=== PATIENT | male | born 1935 | race Caucasian/White ===

== ENCOUNTER 2016-07-22 11:02 | Observation (INO) | payer MEDICARE, OTHER ==
[~2016-07-22] VITALS: Ht 172.7 cm; Wt 68.0 kg
[~2016-07-22 11:02] MED LIST: ASPI-586 PO; ATOR40TA70 PO; CEPH-507 PO; DILT300C49 PO; FURO-124 PO; HYDR-3812 PO; IRBE300T42 PO; MEMA28CA PO; PANT40TA2 PO; PRAS10TA6 PO
[2016-07-22 11:30] VITALS: BP 171/81
--- OUTSIDE RECORDS SUMMARY | 2016-07-22 12:18 | XMS REPORT | Continuity of Care Document ---
Author Author [facility] Organization [facility] Address Unknown Phone Unavailable Care Team Providers Care Harness Repairer Name Role Phone SHAHRAM ALVAREZ MD PCP Insurance Providers Payer Name Policy Number Subscriber Name Relationship [facility] [id number] Mina Sinclair Self / Same As Patient s Medicare [id number] Mina Sinclair Self / Same As Patient Advance Directives Directive Response Recorded Date/Time Advance Directives No 07/20/16 3:36pm Health Care Power of Solid Waste Manager No 07/20/16 3:36pm Organ Donor No 07/20/16 3:36pm Resuscitation Status Full Code 07/20/16 3:36pm Problems No problem information available. Medications Current Home Medications Medication Dose Units Route Directions Days/Qty Instructions Start Date Prasugrel Hcl 10 Mg 10 Mg Oral Daily 07/20/16 Irbesartan 300 Mg 300 Mg Oral Daily 07/20/16 Aspirin 81 Mg 81 Mg Oral Daily 07/20/16 Memantine Hcl 28 Mg 28 Mg Oral Daily 07/20/16 Diltiazem Hcl 300 Mg 300 Mg Oral Bedtime 07/20/16 Atorvastatin Calcium 40 Mg 40 Mg Oral Bedtime 07/20/16 Furosemide 40 Mg 40 Mg Oral Bedtime 07/20/16 Pantoprazole Sodium 40 Mg 40 Mg Oral Bedtime 07/20/16 Hydrocodone/Acetaminophen 1 Each 1-2 Tab Oral Give Every 4 Hrs On Schedule as needed for Moderate Pain 40 07/21/16 Cephalexin 500 Mg 500 Mg Oral Three Times A Day 30 07/21/16 Social History Social History Problem Response Recorded Date/Time Alcohol Use Denies Use 07/20/2016 3:36pm Recreational Drug Use No 07/20/2016 3:36pm Recent Foreign Travel No 07/20/2016 3:28pm Recent Infectious Disease Exposure No 07/20/2016 3:28pm Smoking Status Never a Smoker 07/20/2016 3:36pm Recent Hopitalizations No 07/20/2016 3:36pm Query Response Start Date Stop Date Smoking Status Never a Smoker Hospital Discharge Instructions No hospital discharge instructions. Plan of Care Discharge Date 07/21/16 3:00pm Instructions/Education Provided Nosebleeds (DC) Prescriptions See Medication Section Functional Status Query Response Date Recorded Patient Orientation Person Place Time Situation July 21, 2016 5:54pm Comprehension Ability Understands Concepts July 21, 2016 8:00am Allergies, Adverse Reactions, Alerts No known allergies. Immunizations Name Given Type FLU TRIvalent 5 years - Adult 07/21/16 Administered Vital Signs Acute Vital Signs Vital Response Date/Time Temperature (Fahrenheit) 98.0 degrees F (97.6 - 99.5) 07/21/2016 3:00pm Temperature (Calculated Celsius) 36.82857 degrees C (36.4 - 37.5) 07/21/2016 12:00pm Temperature Source Tympanic 07/21/2016 3:00pm Pulse Rate (adult) 78 bpm (60 - 90) 07/21/2016 3:00pm Respiratory Rate 20 bpm (12 - 24) 07/21/2016 3:00pm O2 Sat by Pulse Oximetry 95 % (88 - 100) 07/21/2016 3:00pm Blood Pressure 138/88 mm Hg 07/21/2016 3:00pm Blood Pressure Mean 84 mm Hg 07/21/2016 12:00pm Pain Numeric Pain Scale 8 07/21/2016 12:03pm Pain Intensity 3 07/21/2016 3:26am Height (Feet) 5 feet 07/20/2016 3:28pm Height (Inches) 8.50 inches 07/20/2016 3:28pm Height (Calculated Centimeters) 173.980217 cm 07/20/2016 3:28pm Weight (Pounds) 152 pounds 07/20/2016 3:28pm Weight (Ounces) 0.0 oz 07/20/2016 3:28pm Weight (Calculated Grams) 93269.04 gm 07/20/2016 3:28pm Weight (Calculated Kilograms) 68.834803 kilograms 07/20/2016 3:28pm Calculated BMI 22.8 07/20/2016 3:28pm Results Laboratory Results Test Name Result Units Flags Reference Collection Date/Time Result Date/ Time Comments White Blood Count 8.7 10^3/uL 4.3-11.0 07/20/2016 3:05pm 07/20/2016 3: 20pm Red Blood Count 3.97 10^6/uL L 4.35-5.85 07/20/2016 3:05pm 07/20/2016 3: 20pm Hemoglobin 12.2 G/DL L 13.3-17.7 07/20/2016 3:05pm 07/20/2016 3:20pm Hematocrit 37 % L 40-54 07/20/2016 3:05pm 07/20/2016 3:20pm Mean Corpuscular Volume 92 FL 80-99 07/20/2016 3:05pm 07/20/2016 3: 20pm Mean Corpuscular Hemoglobin 31 PG 25-34 07/20/2016 3:05pm 07/20/2016 3: 20pm Mean Corpuscular Hemoglobin Concent 33 G/DL 32-36 07/20/2016 3:05pm 3:20pm Red Cell Distribution Width 12.5 % 10.0-14.5 07/20/2016 3:05pm 2015 3:20pm Platelet Count 232 10^3/uL 130-400 07/20/2016 3:05pm 07/20/2016 3:20pm Mean Platelet Volume 10.2 FL 7.4-10.4 07/20/2016 3:05pm 07/20/2016 3: 20pm Neutrophils (%) (Auto) 69 % 42-75 07/20/2016 3:05pm 07/20/2016 3:20pm Lymphocytes (%) (Auto) 19 % 12-44 07/20/2016 3:05pm 07/20/2016 3:20pm Monocytes (%) (Auto) 9 % 0-12 07/20/2016 3:05pm 07/20/2016 3:20pm Eosinophils (%) (Auto) 3 % 0-10 07/20/2016 3:05pm 07/20/2016 3:20pm Basophils (%) (Auto) 0 % 0-10 07/20/2016 3:05pm 07/20/2016 3:20pm Neutrophils # (Auto) 6.0 X 10^3 1.8-7.8 07/20/2016 3:05pm 07/20/2016 3: 20pm Lymphocytes # (Auto) 1.7 X 10^3 1.0-4.0 07/20/2016 3:05pm 07/20/2016 3: 20pm Monocytes # (Auto) 0.8 X 10^3 0.0-1.0 07/20/2016 3:05pm 07/20/2016 3: 20pm Eosinophils # (Auto) 0.2 10^3/uL 0.0-0.3 07/20/2016 3:05pm 07/20/2016 3 :20pm Basophils # (Auto) 0.0 10^3/uL 0.0-0.1 07/20/2016 3:05pm 07/20/2016 3: 20pm Sodium Level 140 MMOL/L 135-145 07/20/2016 3:05pm 07/20/2016 3:41pm Potassium Level 3.8 MMOL/L 3.6-5.0 07/20/2016 3:05pm 07/20/2016 3:41pm Chloride Level 111 MMOL/L H 98-107 07/20/2016 3:05pm 07/20/2016 3:41pm Carbon Dioxide Level 20 MMOL/L L 21-32 07/20/2016 3:05pm 07/20/2016 3: 41pm Anion Gap 9 MMOL/L 5-14 07/20/2016 3:05pm 07/20/2016 3:41pm Blood Urea Nitrogen 36 MG/DL H 7-18 07/20/2016 3:05pm 07/20/2016 3:41pm Creatinine 0.97 MG/DL 0.60-1.30 07/20/2016 3:05pm 07/20/2016 3:41pm BUN/Creatinine Ratio 37 07/20/2016 3:05pm 07/20/2016 3:41pm Estimat Glomerular Filtration Rate > 60 07/20/2016 3:05pm 2015 3:41pm GFR INTERPRETIVE DATA UNITS FOR ESTIMATED GFR (eGFR): mL/min/1.73 M2 REFERENCE RANGE FOR ESTIMATED GFR (eGFR) eGFR NORMAL eGFR >60 MODERATELY DECREASED eGFR 30-59 SEVERLY DECREASED eGFR 15-29 KIDNEY FAILURE <15 (OR DIALYSIS) Glucose Level 148 MG/DL H 70-105 07/20/2016 3:05pm 07/20/2016 3:41pm Calcium Level 9.0 MG/DL 8.5-10.1 07/20/2016 3:05pm 07/20/2016 3:41pm Total Bilirubin 0.7 MG/DL 0.1-1.0 07/20/2016 3:05pm 07/20/2016 3:41pm Alkaline Phosphatase 70 U/L 40-136 07/20/2016 3:05pm 07/20/2016 3:41pm Aspartate Amino Transf (AST/SGOT) 20 U/L 5-34 07/20/2016 3:05pm 2015 3:41pm Alanine Aminotransferase (ALT/SGPT) 20 U/L 0-55 07/20/2016 3:05pm 07/20 3:41pm Total Protein 6.0 G/DL L 6.4-8.2 07/20/2016 3:05pm 07/20/2016 3:41pm Albumin 4.1 G/DL 3.2-4.5 07/20/2016 3:05pm 07/20/2016 3:41pm Procedures Procedure Status Date Provider(s) Control of epistaxis Completed 07/20/16 EKTA FAN MD Tracing only of electrocardiogram Completed 07/20/16 EKTA FAN MD Encounters Encounter Location Arrival/Admit Date Discharge/Depart Date Attending Provider Departed [facility] 07/20/16 2:31pm 3:00pm EKTA FAN MD
[2016-07-22] MEDS ORDERED: LACTATED RINGERS 1,000 ML IV ONE (12:26)
[2016-07-22] MEDS ORDERED: SEVOFLURANE (ULTANE) 15 ML INHAL SOLN ONE ×2 (12:26→13:38)
[2016-07-22] MEDS ORDERED: LIDOCAINE PF 2% 10 ML (XYLOCAINE) AMP ONE (12:26)
[2016-07-22] MEDS ORDERED: SUCCINYLCHOLINE INJ 100 MG/5 ML SYR ONE (12:26)
[2016-07-22] MEDS ORDERED: proPOfol 200 MG/20 ML (DIPRIVAN) VIAL IV ONE (12:26)
[2016-07-22] MEDS ORDERED: fentaNYL INJECTION 100 MCG/2 ML AMP ONE (12:26)
[2016-07-22] MEDS ORDERED: ROCURONIUM 50 MG/5 ML (ZEMURON) VIAL IV ONE (12:26)
[2016-07-22] MEDS ORDERED: ONDANSETRON 4 MG/2 ML (SDV) Z0FRAN ONE (12:26)
--- NOTE | 2016-07-22 12:41 | Progress Note-Pre Operative ---
Pre-Operative Progress Note H&P Reviewed The H&P was reviewed, patient examined and no changes noted. Date H&P Reviewed: Jul 22, 2016 Time H&P Reviewed: 12:20 Pre-Operative Diagnosis: Recurrent Right Posterior Epistaxis EKTA FAN MD Jul 22, 2016 12:41 pm
[2016-07-22 12:43] LABS: BASOPHILS % (AUTO) 0 % (0-10); EOSINOPHILS # (AUTO) 0.1 10^3/uL (0.0-0.3); EOSINOPHILS % (AUTO) 1 % (0-10); LYMPHOCYTES # (AUTO) 0.7 X 10^3 (1.0-4.0); LYMPHOCYTES % (AUTO) 6 % (12-44); MEAN CORPUSCULAR HEMOGLOBIN 31 PG (25-34); MEAN CORPUSCULAR HGB CONC 32 G/DL (32-36); MEAN CORPUSCULAR VOLUME 95 FL (80-99); MONOCYTES # (AUTO) 0.6 X 10^3 (0.0-1.0); MONOCYTES % (AUTO) 6 % (0-12); NEUTROPHILS # (AUTO) 9.2 X 10^3 (1.8-7.8); NEUTROPHILS % (AUTO) 87 % (42-75); PLATELET COUNT 221 10^3/uL (130-400); RED BLOOD COUNT 3.56 10^6/uL (4.35-5.85); RED CELL DISTRIBUTION WIDTH 12.7 % (10.0-14.5); WHITE BLOOD COUNT 10.6 10^3/uL (4.3-11.0)
[2016-07-22] MEDS ORDERED: LIDOCAINE/EPI 1%-1:100,000 (XYLOCAINE) 20ML INJ ONE (12:57)
[2016-07-22] MEDS ORDERED: MUPIROCIN 2% OINT 22 GM (BACTROBAN) TUBE TOP ONE (12:57)
[2016-07-22] MEDS ORDERED: PHENYLEPHRINE 100 MCG/ML 10 ML (ANESTHESIA) SYR ONE (12:58)
[2016-07-22 12:59] LABS: ANION GAP 10 MMOL/L (5-14); BLOOD UREA NITROGEN 19 MG/DL (7-18); BUN/CREATININE RATIO 18; CALCIUM 9.4 MG/DL (8.5-10.1); CARBON DIOXIDE 24 MMOL/L (21-32); CHLORIDE 106 MMOL/L (98-107); CREATININE SERUM 1.06 MG/DL (0.60-1.30); GFR ESTIMATED > 60; GLUCOSE 199 MG/DL (70-105); POTASSIUM 4.1 MMOL/L (3.6-5.0); SODIUM 140 MMOL/L (135-145)
--- NOTE | 2016-07-22 13:23 | Progress Note-Post Operative ---
Post-Operative Progess Note Pre-Operative Diagnosis Recurrent Right Posterior Epistaxis Post-Operative Diagnosis same Post-Op Procedure Note Date of Procedure: Jul 22, 2016 Name of Procedure: Endoscopoic Repair of Right Posterior Epistaxis Anesthesia Type get Estimated blood loss (mL): less than 50cc at time of surgery Packing: DNP-right side of nose EKTA FAN MD Jul 22, 2016 1:23 pm
[2016-07-22] MEDS ORDERED: HYDROcodone/APAP 5 MG/325 MG (LORTAB) TAB PO PRN ×2 (13:30→15:38)
[2016-07-22] MEDS ORDERED: PHENYLEPHRINE 0.5% NASAL SPR (NEO-SYNEPHRINE) REG PRN (13:30)
[2016-07-22 13:40] LABS: BAND NEUTROPHILS 2 %; NEUTROPHILS % (MANUAL) 85 %
[2016-07-22 13:41] LABS: LYMPHOCYTES % (MANUAL) 5 %
[2016-07-22] MEDS ORDERED: CEPH-507 PO (13:49)
[2016-07-22] MEDS ORDERED: SODI30SP2 (13:49)
[2016-07-22] MEDS ORDERED: PHEN15SP NS (13:49)
[2016-07-22 14:45] VITALS: BP 134/68
[2016-07-22] MEDS: D5 1/2 NS W/KCL 20 MEQ/L 1,000 ML IV SCH (14:59)
[2016-07-22] MEDS ORDERED: PHENYLEPHRINE 0.25% NASAL SPR (NEO-SYNEPHRINE) 15 ML NS PRN (15:00)
[2016-07-22] MEDS ORDERED: PATIENT MAY USE OWN MEDS, ALL MC SCH (15:00)
[2016-07-22] MEDS ORDERED: FUROSEMIDE 40 MG (LASIX) TAB PO PRN (15:00)
[2016-07-22 15:50] VITALS: BP 150/74
[2016-07-22] MEDS ORDERED: LACTATED RINGERS 1,000 ML IV SCH (17:15)
[2016-07-22] MEDS: ACYCLOVIR 200 MG CAP (ZOVIRAX) PO SCH ×2 (18:11→20:41)
[2016-07-22] MEDS: SALINE NASAL SPRAY (OCEAN) 45 ML BTL SCH ×2 (18:12→20:53)
[2016-07-22 20:25] VITALS: BP 152/73
[2016-07-22] MEDS: CEPHALEXIN 500MG CAPSULES PO SCH (20:51)
[2016-07-22] MEDS: DILTIAZEM 300 MG (CARDIZEM CD) CAP PO SCH (20:52)
[2016-07-22] MEDS: PANTOPRAZOLE 40 MG (PROTONIX) TAB PO SCH (20:53)
[2016-07-22] MEDS: ACETAMINOPHEN 500 MG TAB (TYLENOL) PO PRN (23:22)
[2016-07-23] VITALS: BP 132/58
[2016-07-23] MEDS: D5 1/2 NS W/KCL 20 MEQ/L 1,000 ML IV SCH ×2 (03:00→16:03)
[2016-07-23 04:00] VITALS: BP 158/69
--- NOTE | 2016-07-23 06:03 | Progress Note-Standard ---
Standard Progress Note Progress Notes/Assess & Plan Progress/Assessment & Plan [facility] Doing Well Question of shingles on right forehead so he was moved to contact isolation NO bleeding since surgery Will observe today and possibly home on monday or if no bleeding Patient was started on acylcovir on monday for treatment of the possible shingles as well will need to send home on remainder of the acyclovir off his blood thinners until monday or monday given his recurrent bleeding Final Diagnosis Recurrent Right Posterior Epistaxis Possible shingle-right forehead EKTA FAN MD Jul 23, 2016 6:03 am
[2016-07-23] MEDS: ACYCLOVIR 200 MG CAP (ZOVIRAX) PO SCH ×5 (06:44→20:14)
[2016-07-23 08:44] VITALS: BP 139/65
[2016-07-23] MEDS: ATORVASTATIN 40 MG (LIPITOR) TABLET PO SCH (08:55)
[2016-07-23] MEDS: MEMANTINE HCL 28 MG PO SCH (09:00)
[2016-07-23] MEDS: CEPHALEXIN 500MG CAPSULES PO SCH ×3 (09:00→20:14)
[2016-07-23] MEDS: SALINE NASAL SPRAY (OCEAN) 45 ML BTL SCH ×4 (09:00→20:13)
--- NOTE | 2016-07-23 11:38 | Anesthesia-General Post-Op ---
General Patient Condition Mental Status/LOC: Same as Preop Cardiovascular: Satisfactory Nausea/Vomiting: Absent Respiratory: Satisfactory Pain: Controlled Complications: Absent Post Op Complications Complications None Follow Up Care/Instructions Patient Instructions None needed. Anesthesia/Patient Condition Patient Condition Patient is doing well, no complaints, stable vital signs, no apparent adverse anesthesia problems. No complications reported per nursing. PATITO HERNANDEZ CRNA Jul 23, 2016 11:38
[2016-07-23 12:00] VITALS: BP 132/63
[2016-07-23] MEDS: ACETAMINOPHEN 500 MG TAB (TYLENOL) PO PRN ×2 (15:33→21:18)
[2016-07-23 16:46] VITALS: BP 170/89
[2016-07-23] MEDS: DILTIAZEM 300 MG (CARDIZEM CD) CAP PO SCH (20:14)
[2016-07-23] MEDS: PANTOPRAZOLE 40 MG (PROTONIX) TAB PO SCH (20:15)
[2016-07-23 20:33] VITALS: BP 153/78
[2016-07-24] VITALS (7 sets, daily range): BP systolic 138–183; BP diastolic 60–88
[2016-07-24] MEDS: ACYCLOVIR 200 MG CAP (ZOVIRAX) PO SCH ×5 (06:12→20:15)
--- NOTE | 2016-07-24 06:23 | Progress Note-Standard ---
Standard Progress Note Progress Notes/Assess & Plan Progress/Assessment & Plan [facility] Doing Well Question of shingles on right forehead so he was moved to contact isolation NO bleeding since surgery Will observe today and possibly home on monday or if no bleeding Patient was started on acylcovir on monday for treatment of the possible shingles as well will need to send home on remainder of the acyclovir off his blood thinners until monday or monday given his recurrent bleeding ENT-[facility]-07/24 No bleeding since surgery Forehead looks about the same-mild discomfort from ligia posible [id number] acyclovir Nose-no new or ol blood in nose or mouth Will plan on keeping today and then then home on monday as long as doing ok- will send edwin on the acyclovir and keep taking the keflex Patient does have amild cough/cold-no purulent drainage Diet as tolerated-overall doing well EKTA FAN MD Jul 24, 2016 6:23 am
[2016-07-24] MEDS: MEMANTINE HCL 28 MG PO SCH (08:38)
[2016-07-24] MEDS: SALINE NASAL SPRAY (OCEAN) 45 ML BTL SCH ×4 (08:38→20:15)
[2016-07-24] MEDS: CEPHALEXIN 500MG CAPSULES PO SCH ×3 (08:38→20:17)
[2016-07-24] MEDS: ATORVASTATIN 40 MG (LIPITOR) TABLET PO SCH (08:40)
[2016-07-24] MEDS: PANTOPRAZOLE 40 MG (PROTONIX) TAB PO SCH (20:16)
[2016-07-24] MEDS: DILTIAZEM 300 MG (CARDIZEM CD) CAP PO SCH (20:16)
[2016-07-25 04:03] VITALS: BP 117/63
[2016-07-25] MEDS: ACYCLOVIR 200 MG CAP (ZOVIRAX) PO SCH ×3 (06:04→12:26)
--- NOTE | 2016-07-25 06:08 | Progress Note-Standard ---
Standard Progress Note Progress Notes/Assess & Plan Progress/Assessment & Plan [facility] Doing Well Question of shingles on right forehead so he was moved to contact isolation NO bleeding since surgery Will observe today and possibly home on monday or if no bleeding Patient was started on acylcovir on monday for treatment of the possible shingles as well will need to send home on remainder of the acyclovir off his blood thinners until monday or monday given his recurrent bleeding [facility]-07/24 No bleeding since surgery Forehead looks about the same-mild discomfort from ligia posible [id number] acyclovir Nose-no new or ol blood in nose or mouth Will plan on keeping today and then then home on monday as long as doing ok- will send edwin on the acyclovir and keep taking the keflex Patient does have amild cough/cold-no purulent drainage Diet as tolerated-overall doing well [facility]-07/25 No bleeding still has r awilda on right forehead-mild discomfort OP-dry absorbable packing intact in nose will discharge after breakfast-patient should already have return apt with me an about ten d ays-if not have him call our office on monday for apt in ten days finish out keflx he has at home he also has pain mediciane at home prescription for five more days of acyclovir in chart-if rash/pain gets worse get in to see DR Pagan for additional evaluation of the forehead rash Final Diagnosis Right Posterior Epistaxis Recurrent Shingles Right Forehead EKTA FAN MD Jul 25, 2016 6:08 am
[2016-07-25 08:00] VITALS: BP 150/79
[2016-07-25] MEDS: SALINE NASAL SPRAY (OCEAN) 45 ML BTL SCH ×2 (08:19→12:26)
[2016-07-25] MEDS: ATORVASTATIN 40 MG (LIPITOR) TABLET PO SCH (08:20)
[2016-07-25] MEDS: CEPHALEXIN 500MG CAPSULES PO SCH ×2 (08:21→12:26)
[2016-07-25] MEDS: MEMANTINE HCL 28 MG PO SCH (08:21)
[2016-07-25 12:00] VITALS: BP 187/81
[2016-07-25 13:05] VITALS: BP 187/81
== END 2016-07-25 13:05 | disposition home or self-care (01) ==
LOC: 4TH 12:10
PROVIDERS: ADMIT Otolaryngology Otolaryngology/Facial Plastic Surgery; ATTEND Otolaryngology Otolaryngology/Facial Plastic Surgery
DX: R04.0 Epistaxis (principal); B02.9 Zoster without complications; I10 Essential (primary) hypertension; E11.9 Type 2 diabetes mellitus without complications; Z95.5 Presence of coronary angioplasty implant and graft; Z79.02 Long term (current) use of antithrombotics/antiplatelets; Z79.82 Long term (current) use of aspirin; Z79.899 Other long term (current) drug therapy
CPT/HCPCS: 36415; 80048; 85007; 85027; 94760; 99211; G0378

== ENCOUNTER 2022-01-26 09:57 | Outpatient (RCR) | payer MEDICARE, OTHER ==
[~2022-01-26 09:57] MED LIST changes: +ACHD5005 PO; -HYDR-3812 PO; +PHEN15SP16 NS; +SODI30SP2
== END 2022-02-20 | disposition home or self-care (01) ==
LOC: ONC 09:57
PROVIDERS: ATTEND Radiology Radiation Oncology
DX: C61 Malignant neoplasm of prostate (principal)
CPT/HCPCS: 99204

== ENCOUNTER 2022-05-31 10:28 | Outpatient (RCR) | payer MEDICARE, OTHER | END 2022-06-22 | disposition home or self-care (01) | LOC: ONC 10:28 | PROVIDERS: ATTEND Radiology Radiation Oncology | DX: C61 Malignant neoplasm of prostate (principal); E11.42 Type 2 diabetes mellitus with diabetic polyneuropathy; E78.00 Pure hypercholesterolemia, unspecified; I11.9 Hypertensive heart disease without heart failure | CPT/HCPCS: 76873 ==

== ENCOUNTER 2022-07-27 05:35 | Outpatient (CLI) | payer MEDICARE, OTHER ==
[~2022-07-27] VITALS: Ht 172.7 cm; Wt 68.6 kg
[2022-07-28] MEDS ORDERED: ASPI-999 PO (08:03)
[2022-07-28] MEDS ORDERED: DOXA4TAB PO (08:03)
== END 2022-08-01 14:29 | disposition home or self-care (01) ==
LOC: PREOP 05:35
PROVIDERS: ATTEND Specialist
DX: Z01.818 Encounter for other preprocedural examination (principal)

== ENCOUNTER 2022-08-03 10:16 | Day surgery (SDC) | payer MEDICARE, OTHER ==
[2022-08-03] VITALS (9 sets, daily range): BP systolic 117–176; BP diastolic 58–80
[~2022-08-03] VITALS: Ht 172.7 cm; Wt 68.6 kg
[~2022-08-03 10:16] MED LIST changes: +ASPI-999 PO; +DOXA4TAB PO
--- NOTE | 2022-08-03 10:24 | Progress Note-Pre Operative ---
Pre-Operative Progress Note Date of Available H&P: Jul 26, 2022 Date H&P Reviewed: Aug 03, 2022 Time H&P Reviewed: 10:23 History & Physical: H&P Reviewed, No changes noted Changes from last HP see H&P addendum Pre-Operative Diagnosis: Prostate cancer cT1c, PSa 14.4, [place] 7 (3+4) Perez CORREA MD Aug 03, 2022 10:24
--- NOTE | 2022-08-03 10:28 | Discharge Inst-Simple/Standard ---
Discharge Inst-Standard Reconcile Patient Problems Problems Reviewed?: Yes Discharge Medications New, Converted or Re-Newed RX: Other (Patient has med at home.) Patient Instructions/Follow Up Plan of Care/Instructions/FU: Treatment planning ct scan at [facility] cancer 08/17/22 at 9:00 a.m. Please drink 1/2 bottle of oral contrast at 8:30 a.m. prio to coming in for appointment. Activity as Tolerated: Yes Discharge Diet: No Restrictions Perez CORREA MD Aug 03, 2022 10:28
[2022-08-03] MEDS ORDERED: LACTATED RINGERS 1,000 ML IV PRN ×2 (10:30)
[2022-08-03] MEDS ORDERED: proPOfol 200 MG/20 ML (DIPRIVAN) VIAL IV ONE (12:37)
[2022-08-03] MEDS ORDERED: fentaNYL INJ 100 MCG/2 ML AMP ONE (12:37)
[2022-08-03] MEDS ORDERED: BACITRACIN OINTMENT 28 GM TUBE ONE (12:59)
--- NOTE | 2022-08-03 13:09 | Anesthesia-General Post-Op ---
General Patient Condition Mental Status/LOC: Same as Preop Cardiovascular: Satisfactory Nausea/Vomiting: Absent Respiratory: Satisfactory Pain: Controlled Complications: Absent Post Op Complications Complications None Follow Up Care/Instructions Patient Instructions None needed. Anesthesia/Patient Condition Patient Condition Patient is doing well, no complaints, stable vital signs, no apparent adverse anesthesia problems. No complications reported per nursing. PATITO HERNANDEZ CRNA Aug 03, 2022 13:09
--- NOTE | 2022-08-03 13:10 | Progress Note-Post Operative ---
Post-Operative Progess Note Surgeon (s)/Sales Representative Printing Supplies (s) Surgeon Perez CORREA MD Sales Representative Printing Supplies: N/A Pre-Operative Diagnosis Prostate cancer cT1c, PSa 14.4, [place] 7 (3+4) Post-Operative Diagnosis Same as pre-op Procedure & Operative Findings Date of Procedure 08/03/22 Procedure Performed/Findings (1) Placement of fiducial gold seed markers (2) Injection of biodegradable hydrogel prostate-rectal spacer utilizing the [employer] Andrew system Anesthesia Type General Estimated Blood Loss Estimated blood loss (mL): Minimal Specimens/Packing Specimens Removed None Packing: None Perez CORREA MD Aug 03, 2022 13:10
[2022-08-03] MEDS ORDERED: fentaNYL INJ 100 MCG/2 ML AMP IVP ONE (13:15)
[2022-08-03] MEDS ORDERED: ONDANSETRON 4 MG/2 ML (SDV) Z0FRAN IVP PRN (13:15)
[2022-08-03] MEDS ORDERED: SEVOFLURANE (ULTANE) 15 ML INHAL SOLN ONE (13:22)
[2022-08-03] MEDS ORDERED: BACITRACIN OINTMENT 28 GM TUBE TOP ONE (13:22)
[2022-08-03] MEDS ORDERED: ONDANSETRON 4 MG/2 ML (SDV) Z0FRAN ONE (13:22)
== END 2022-08-03 14:45 | disposition home or self-care (01) ==
LOC: SDC 10:16
PROVIDERS: ATTEND Specialist
DX: C61 Malignant neoplasm of prostate (principal); E11.9 Type 2 diabetes mellitus without complications
CPT/HCPCS: 55874; 55876; 87081; C1889

== ENCOUNTER → 2022-08-23 | Outpatient (RCR) | payer MEDICARE, OTHER | END | disposition home or self-care (01) | LOC: ONC 08-17 08:58 | PROVIDERS: ATTEND Radiology Radiation Oncology | DX: Z51.0 Encounter for antineoplastic radiation therapy (principal); C61 Malignant neoplasm of prostate; E11.42 Type 2 diabetes mellitus with diabetic polyneuropathy; E78.00 Pure hypercholesterolemia, unspecified; I11.9 Hypertensive heart disease without heart failure | CPT/HCPCS: 77300; 77301; 77334; 77338; 77385 ==

== ENCOUNTER → 2022-09-20 | Outpatient (RCR) | payer MEDICARE, OTHER | END | disposition home or self-care (01) | LOC: ONC 08-24 09:39 | PROVIDERS: ATTEND Radiology Radiation Oncology | DX: Z51.0 Encounter for antineoplastic radiation therapy (principal); C61 Malignant neoplasm of prostate; E11.42 Type 2 diabetes mellitus with diabetic polyneuropathy; E78.00 Pure hypercholesterolemia, unspecified; I11.9 Hypertensive heart disease without heart failure | CPT/HCPCS: 77336; 77385 ==

== ENCOUNTER → 2022-10-21 | Outpatient (RCR) | payer MEDICARE, OTHER | END | disposition home or self-care (01) | LOC: ONC 09-21 09:40 | PROVIDERS: ATTEND Radiology Radiation Oncology | DX: Z51.0 Encounter for antineoplastic radiation therapy (principal); C61 Malignant neoplasm of prostate | CPT/HCPCS: 77336; 77385 ==

== ENCOUNTER 2022-10-31 09:41 | Outpatient (RCR) | payer MEDICARE, OTHER | END 2022-11-20 | disposition home or self-care (01) | LOC: ONC 09:41 | PROVIDERS: ATTEND Radiology Radiation Oncology | DX: Z51.0 Encounter for antineoplastic radiation therapy (principal); C61 Malignant neoplasm of prostate | CPT/HCPCS: 77336; 77385 ==

== ENCOUNTER 2022-12-22 10:03 | Outpatient (RCR) | payer MEDICARE, OTHER ==
[~2022-12-22 10:03] MED LIST changes: +DILT300C38 PO; -DILT300C49 PO; -DOXA4TAB PO; +DOXA4TAB96 PO
== END 2023-01-20 | disposition home or self-care (01) ==
LOC: ONC 10:03
PROVIDERS: ATTEND Radiology Radiation Oncology
DX: C61 Malignant neoplasm of prostate (principal); I11.9 Hypertensive heart disease without heart failure; E78.00 Pure hypercholesterolemia, unspecified; E11.9 Type 2 diabetes mellitus without complications
CPT/HCPCS: 84153; G0463; 36415; 99213